=== PATIENT | female | born 1980 | race Caucasian/White ===

== ENCOUNTER 2018-12-25 08:12 | Emergency (ER) | payer BC, OTHER ==
[2018-12-25] MEDS ORDERED: Lidocaine 1% PF 5 ML VIAL ONE (08:44)
[2018-12-25] MEDS ORDERED: Ibuprofen 800 MG TAB ONE (09:14)
[2018-12-25] MEDS ORDERED: HYDROcodone/Acetaminophen 10/325 mg Tablet ONE (09:15)
--- NOTE | 2018-12-25 20:57 | RAD ---
LEFT HAND THREE VIEWS: 12/25/2018 FINDINGS: A spiral fracture of the fourth metacarpal shaft is present, with displacement of the distal fragment somewhat anteriorly and laterally. The remainder of the hand and wrist appear intact. IMPRESSION: Displaced fracture of the fourth metacarpal. POS: HOME
== END 2018-12-25 09:27 | disposition home or self-care (01) ==
LOC: BURERS 08:12
DX: S62.325A Displaced fracture of shaft of fourth metacarpal bone, left hand, initial encounter for closed fracture (principal); W22.8XXA Striking against or struck by other objects, initial encounter
CPT/HCPCS: 26605; J2001